=== PATIENT | male | born 1945 | race Caucasian/White ===

== ENCOUNTER 2017-06-26 13:24 | Emergency (ER) | payer OTHER ==
--- NOTE | 2017-06-26 13:36 | ER Report ---
History and Physical Time Seen By MD: 13:33 HPI/ROS CHIEF COMPLAINT: Sent from radiology secondary to obstructive uropathy HISTORY OF PRESENT ILLNESS: Patient is a 9-year-old male who was at the outpatient ultrasound office today for difficulty with urination. Patient had a renal ultrasound that showed bilateral hydronephrosis along with a pre-void residual of 2500 mL of urine followed by a postvoid residual of 1700 MLS. Patient is followed by Dr. Landin; the office was called and they were directed to send the patient to the emergency department for further evaluation. REVIEW OF SYSTEMS: Constitutional: No fever, no chills. Eyes: No discharge. ENT: No sore throat. Cardiovascular: No chest pain, no palpitations. Respiratory: No cough, no shortness of breath. Gastrointestinal: No abdominal pain, no vomiting. Genitourinary: Difficulty with urination Musculoskeletal: No back pain. Skin: No rashes. Neurological: No headache. Allergies: Coded Allergies: No Known Drug Allergies (Unverified , 06/26/17) Home Meds Reported Medications Metoprolol Succinate/Hctz (Metoprolol ER-Hctz 50-12.5 mg) 50 Mg-12.5 Mg Tab.er.24h 06/26/17 Constitutional Vital Sign - Last 24 Hours 06/26/17 13:35 Temp 97.4 Pulse 81 Resp 16 B/P (MAP) 214/115 Pulse Ox 94 O2 Delivery Room Air Intake and Output 06/26/17 06/26/17 06/27/17 15:00 23:00 07:00 Intake Total 0 ml Output Total 100 ml 3600 ml Balance -100 ml -3600 ml Physical Exam General Appearance: The patient is alert, has no immediate need for airway protection and no current signs of toxicity. Eyes: Pupils equal and round no injection. Respiratory: Chest is non tender, lungs are clear to auscultation. Cardiac: regular rate and rhythm Gastrointestinal: Abdomen is soft and non tender, no masses, bowel sounds normal. Musculoskeletal: Neck: Neck is supple and non tender. Extremities have full range of motion and are non tender. Skin: No rashes or lesions. Medical Decision Making Data Points Result Diagram: 06/26/17 1347 06/26/17 1347 Laboratory Hematology Test 06/26/17 13:45 06/26/17 13:47 Urine Color Straw Urine Clarity Clear Urine pH 6.0 pH (4.8-9.5) Urine Specific [place] 1.008 Urine Protein Negative mg/dL (NEGATIVE) Urine Glucose (UA) Negative mg/dL (NEGATIVE) Urine Ketones Negative mg/dL (NEGATIVE) Urine Blood Small (NEGATIVE) Urine Nitrite Negative (NEGATIVE) Urine Bilirubin Negative (NEGATIVE) Urine Urobilinogen Negative mg/dL (0.2-1.9) Urine Leukocyte Esterase Negative (NEGATIVE) Urine RBC 1 /HPF (0-2/HPF) Urine WBC 3 /HPF (0-5/HPF) Urine Squamous Epithelial Cells None /LPF (</=FEW) Urine Bacteria Negative /HPF (NONE-FEW) Urine Mucus None /HPF (NONE-FEW) Red Blood Count 3.54 M/uL (4.00-5.60) Mean Corpuscular Volume 88.0 fL (80.0-96.0) Mean Corpuscular Hemoglobin 30.7 pg (26.0-33.0) Mean Corpuscular Hemoglobin Concent 34.9 g/dL (32.0-36.0) Red Cell Distribution Width 14.5 % (11.5-14.5) Mean Platelet Volume 8.1 fL (7.2-11.1) Neutrophils (%) (Auto) 79.3 % (39.4-72.5) Lymphocytes (%) (Auto) 10.9 % (17.6-49.6) Monocytes (%) (Auto) 7.9 % (4.1-12.4) Eosinophils (%) (Auto) 1.2 % (0.4-6.7) Basophils (%) (Auto) 0.7 % (0.3-1.4) Nucleated RBC Relative Count (auto) 0.0 /100WBC Neutrophils # (Auto) 8.7 K/uL (2.0-7.4) Lymphocytes # (Auto) 1.2 K/uL (1.3-3.6) Monocytes # (Auto) 0.9 K/uL (0.3-1.0) Eosinophils # (Auto) 0.1 K/uL (0.0-0.5) Basophils # (Auto) 0.1 K/uL (0.0-0.1) Nucleated RBC Absolute Count (auto) 0.00 K/uL Sodium Level 134 mmol/L (137-145) Potassium Level 3.9 mmol/L (3.5-5.0) Chloride Level 102 mmol/L (98-107) Carbon Dioxide Level 17 mmol/L (22-30) Blood Urea Nitrogen 49 mg/dl (9-21) Creatinine 3.30 mg/dl (0.66-1.25) Glomerular Filtration Rate Calc 18.6 Random Glucose 101 mg/dl (75-110) Calcium Level 9.2 mg/dl (8.4-10.2) Chemistry Test 06/26/17 13:45 06/26/17 13:47 Urine Color Straw Urine Clarity Clear Urine pH 6.0 pH (4.8-9.5) Urine Specific [place] 1.008 Urine Protein Negative mg/dL (NEGATIVE) Urine Glucose (UA) Negative mg/dL (NEGATIVE) Urine Ketones Negative mg/dL (NEGATIVE) Urine Blood Small (NEGATIVE) Urine Nitrite Negative (NEGATIVE) Urine Bilirubin Negative (NEGATIVE) Urine Urobilinogen Negative mg/dL (0.2-1.9) Urine Leukocyte Esterase Negative (NEGATIVE) Urine RBC 1 /HPF (0-2/HPF) Urine WBC 3 /HPF (0-5/HPF) Urine Squamous Epithelial Cells None /LPF (</=FEW) Urine Bacteria Negative /HPF (NONE-FEW) Urine Mucus None /HPF (NONE-FEW) White Blood Count 10.9 k/uL (4.5-11.0) Red Blood Count 3.54 M/uL (4.00-5.60) Hemoglobin 10.9 g/dL (14.0-18.0) Hematocrit 31.1 % (42.0-52.0) Mean Corpuscular Volume 88.0 fL (80.0-96.0) Mean Corpuscular Hemoglobin 30.7 pg (26.0-33.0) Mean Corpuscular Hemoglobin Concent 34.9 g/dL (32.0-36.0) Red Cell Distribution Width 14.5 % (11.5-14.5) Platelet Count 269 K/uL (150-450) Mean Platelet Volume 8.1 fL (7.2-11.1) Neutrophils (%) (Auto) 79.3 % (39.4-72.5) Lymphocytes (%) (Auto) 10.9 % (17.6-49.6) Monocytes (%) (Auto) 7.9 % (4.1-12.4) Eosinophils (%) (Auto) 1.2 % (0.4-6.7) Basophils (%) (Auto) 0.7 % (0.3-1.4) Nucleated RBC Relative Count (auto) 0.0 /100WBC Neutrophils # (Auto) 8.7 K/uL (2.0-7.4) Lymphocytes # (Auto) 1.2 K/uL (1.3-3.6) Monocytes # (Auto) 0.9 K/uL (0.3-1.0) Eosinophils # (Auto) 0.1 K/uL (0.0-0.5) Basophils # (Auto) 0.1 K/uL (0.0-0.1) Nucleated RBC Absolute Count (auto) 0.00 K/uL Glomerular Filtration Rate Calc 18.6 Calcium Level 9.2 mg/dl (8.4-10.2) Urinalysis Test 06/26/17 13:45 Urine Color Straw Urine Clarity Clear Urine pH 6.0 pH (4.8-9.5) Urine Specific [place] 1.008 Urine Protein Negative mg/dL (NEGATIVE) Urine Glucose (UA) Negative mg/dL (NEGATIVE) Urine Ketones Negative mg/dL (NEGATIVE) Urine Blood Small (NEGATIVE) Urine Nitrite Negative (NEGATIVE) Urine Bilirubin Negative (NEGATIVE) Urine Urobilinogen Negative mg/dL (0.2-1.9) Urine Leukocyte Esterase Negative (NEGATIVE) Urine RBC 1 /HPF (0-2/HPF) Urine WBC 3 /HPF (0-5/HPF) Urine Squamous Epithelial Cells None /LPF (</=FEW) Urine Bacteria Negative /HPF (NONE-FEW) Urine Mucus None /HPF (NONE-FEW) ED Course/Re-evaluation Clinical Indication for ER IV: IV Access ED Course 06/26/2017 1:35:37 pm plan at this time will be to place a Steel catheter will send urine for urinalysis and culture. We will also place IV to draw blood for CBC and electrolytes. Re-evaluation 06/26/2017 3:03:17 pm I spoke with Dr. Monzon who is covering for doctor Landin; they will follow-up the patient within the next 24-48 hours. They understand creatinine is 3.3 but we feel that this is likely secondary to postobstructive uropathy as the patient has had 3600 mL of urine out in the emergency department. Patient's renal ultrasound showed good bilateral ureteral jets feel renal insufficiency is postobstructive. They will follow the patient up for repeat blood testing. In the next 24-48 hours we will discharge the patient with a leg bag Decision to Disposition Date: Jun 26, 2017 Decision to Disposition Time: 14:58 Depart Departure Latest Vital Signs Vital Signs Date Time Temp Pulse Resp B/P (MAP) Pulse Ox O2 Delivery O2 Flow Rate FiO2 06/26/17 13:35 97.4 81 16 214/115 94 Room Air Impression: Primary Impression: Obstructive uropathy Condition: Improved Disposition: HOME OR SELF-CARE Referrals: ALEJA LANDIN DO (PCP) 1 Day Call the office tomorrow morning to schedule follow-up appointment for repeat lab testing. Departure Forms: ER Transition Record, Medications Reconciliation, Patient Portal Information Patient Instructions: Steel Catheter Placement and Care (DC) CELESTE HILL MD Jun 26, 2017 13:35
[2017-06-26] MEDS ORDERED: METO1TAB39 (13:42)
[2017-06-26 14:15] LABS: PLATELET COUNT, AUTOMATED 269 K/uL (150-450)
[2017-06-26 15:19] VITALS: BP 200/107
== END 2017-06-26 15:35 | disposition home or self-care (01) ==
LOC: ER 13:25
DX: N13.30 Unspecified hydronephrosis (principal)
CPT/HCPCS: 81001; 82310; 82374; 82435; 82565; 82947; 84132; 84295; 84520; 85025; 87088; 99284

== ENCOUNTER 2017-06-26 18:34 | Emergency (ER) | payer OTHER ==
--- NOTE | 2017-06-26 18:40 | ER Report ---
History and Physical Time Seen By MD: 18:39 HPI/ROS CHIEF COMPLAINT: Hematuria HISTORY OF PRESENT ILLNESS: 72-year-old male presents to the ER with concerns over blood-tinged urine in his Steel catheter. Patient had a Steel catheter placed earlier this morning here in the emergency department. He was noted to have a high postvoid residual. This evening he notes that there is some blood in the urine. Patient notes no shortness of breath, no chest pain, no abdominal pain, no dysuria, no fevers. Patient notes he did pull on the catheter and sustained some discomfort Allergies: Coded Allergies: No Known Drug Allergies (Unverified , 06/26/17) Home Meds Reported Medications Metoprolol Succinate/Hctz (Metoprolol ER-Hctz 50-12.5 mg) 50 Mg-12.5 Mg Tab.er.24h 06/26/17 Reviewed Nurses Notes: Yes Old Medical Records Reviewed: Yes Constitutional Vital Sign - Last 24 Hours 06/26/17 06/26/17 18:43 19:05 Temp 97.9 Pulse 76 Resp 16 B/P (MAP) 132/84 (100) Pulse Ox 95 O2 Delivery Room Air Physical Exam General appearance: Alert no distress. Respiratory: Chest is non tender, lungs are clear to auscultation. Cardiac: Regular rate and rhythm Abdomen: Soft, nontender, bowel sounds are intact, fully catheter noted. Intact with blood-tinged drainage. DIFFERENTIAL DIAGNOSIS: After history and physical exam differential diagnosis was considered for hematuria, catheter irritation, urinary tract infection, Medical Decision Making ED Course/Re-evaluation ED Course Patient was admitted to an examination room. H&P was done. The differential diagnoses was considered. Patient with hematuria after catheter injury. Patient advised to monitor for any clots. Patient advised to increase his fluid intake. Decision to Disposition Date: Jun 26, 2017 Decision to Disposition Time: 19:11 Depart Departure Latest Vital Signs Vital Signs Date Time Temp Pulse Resp B/P (MAP) Pulse Ox O2 Delivery O2 Flow Rate FiO2 06/26/17 19:05 132/84 (100) 06/26/17 18:43 97.9 76 16 95 Room Air Impression: Primary Impression: Obstructive uropathy Additional Impression: Hematuria Condition: Improved Disposition: HOME OR SELF-CARE Referrals: ALEJA MARIN DO (PCP) JANNA YOUNG MD Patient Instructions: Steel Catheter Placement and Care (ED) Additional Instructions: Follow-up with Dr. Marin on Thursday. He will likely refer you to urology, Dr. Young or Dr. Rai Return to the ER for any further problems Problem Qualifiers Additional Impression: Hematuria Hematuria type: unspecified type Qualified Codes: R31.9 - Hematuria, unspecified LANEY PAGE DO Jun 26, 2017 18:39
[2017-06-26 19:05] VITALS: BP 132/84
== END 2017-06-26 19:26 | disposition home or self-care (01) ==
LOC: ER 18:46
DX: N13.9 Obstructive and reflux uropathy, unspecified (principal); R31.9 Hematuria, unspecified
CPT/HCPCS: 99282

== ENCOUNTER → 2017-06-26 | Outpatient (CLI) | payer OTHER ==
[~2017-06-26] MED LIST: METO1TAB39
--- NOTE | 2017-06-26 14:02 | RADIOLOGY IMAGING REPORT ---
FACILITY: [facility] - [place] PATIENT NAME: Marshal Schmitt : 1945 MR: [id number] V: [id number] EXAM DATE: ORDERING PHYSICIAN: ALEAJ LANDIN TECHNOLOGIST: [facility] Patient: Marshal Schmitt : 1945 Visit/Account:[id number] Date of Sevice: 06/26/2017 KIDNEYS EXAMINATION: Renal ultrasound. History: Acute renal failure COMPARISON STUDIES: FINDINGS: Kidneys: Right kidney- 15 x 12.9 x 10.5 cm Left kidney- 15.3 x 9.6 x 14.4 cm Hydronephrosis: Severe bilateral hydronephrosis Ureters appear mildly dilated. Bladder: The urinary prevoid volume was 2417 mL. The post void residual was 1781 mL. Bilateral uret eral jets are present. Prostate gland appears mildly enlarged. Abdominal aorta and IVC: Aorta and IVC are patent by Doppler ultrasound. IMPRESSION: Marked bladder distention measuring 2,470 mL prevoid and 1,781 mL post void Severe bilateral hydronephrosis The patient was taken to the emergency room for evaluation. Report Dictated By: Siri Julian MD at 06/26/2017 1:52 PM Report E-Signed By: Siri Julian MD at 06/26/2017 1:58 PM [email or web address]
== END ==
LOC: US 01:16
PROVIDERS: ATTEND Family Medicine
DX: N13.30 Unspecified hydronephrosis (principal); N40.1 Benign prostatic hyperplasia with lower urinary tract symptoms; R33.8 Other retention of urine
CPT/HCPCS: 76705

== ENCOUNTER 2017-07-01 18:29 | Emergency (ER) | payer OTHER ==
[2017-07-01] MEDS ORDERED: METO50TA19 PO (18:45)
[2017-07-01] MEDS ORDERED: NS(*) 0.9% 1000 ML BAG 1,000 ML IV ONE ×2 (19:30→21:10)
[2017-07-01 20:12] LABS: PLATELET COUNT, AUTOMATED 305 K/uL (150-450)
--- NOTE | 2017-07-01 20:15 | EKG ---
[place] [facility] [place] NAME: CYNTHIA MALONE : [id number] MR: [id number] V: [id number] EXAM DATE: ORDERING PHYSICIAN: AMANDA FOX TECHNOLOGIST: MARY Test Reason : NEURO Blood Pressure : / mmHG Vent. Rate : 063 BPM Atrial Rate : 063 BPM P-R Int : 184 ms QRS Dur : 084 ms QT Int : 458 ms P-R-T Axes : 055 020 064 degrees QTc Int : 468 ms Sinus rhythm Possible left atrial enlargement Unusual R wave progression - question lead reversal V2 and V3 No previous ECGs available Confirmed by GUIDO GOMEZ ([id number] on 07/02/2017 5:42:43 AM Referred By: Confirmed By:GUIDO GOMEZ
[2017-07-01] MEDS ORDERED: ONDANSETRON 4 MG/2 ML VIAL IVP ONE (20:50)
[2017-07-01] MEDS ORDERED: CALCIUM GLUC(*)10% 100MG/ML VL 1,000 MG in NS(*) 0.9% 100 ML BAG 100 ML IVPB ONE (21:10)
[2017-07-01] MEDS ORDERED: cefTRIAXone 1 GM VIAL IVP ONE (21:40)
[2017-07-01] MEDS ORDERED: GENTAMICIN/NS 80 MG/100 ML PB 100 ML IVPB ONE (21:40)
[2017-07-01] MEDS ORDERED: NS 0.9% 3000 ML IRRIGATION BAG 3,000 ML IR ONE (22:19)
[2017-07-01 22:21] LABS: INR 1.07
--- NOTE | 2017-07-01 23:02 | RADIOLOGY IMAGING REPORT ---
FACILITY: [facility] - [place] PATIENT NAME: Marshal Schmitt : 1945 MR: [id number] V: [id number] EXAM DATE: ORDERING PHYSICIAN: AMANDA FOX TECHNOLOGIST: Location: [facility] - [place] Patient: Marshal Schmitt : 1945 Visit/Account:[id number] Date of Sevice: 07/01/2017 SINGLE AP RADIOGRAPH OF THE CHEST 07/01/2017 9:37 PM. INDICATION: sepsis COMPARISON: None. FINDINGS: Lungs are well-expanded. There is no consolidation. No pleural effusion or pneumothorax. Heart size i s normal. IMPRESSION: No acute abnormality. Report Dictated By: Kuldeep Lam MD at 07/01/2017 10:54 PM Report E-Signed By: Kuldeep Lam MD at 07/01/2017 10:58 PM WSN:[id number]
[2017-07-02 01:10] VITALS: BP 137/75
[2017-07-02 01:12] LABS: PLATELET COUNT, AUTOMATED 243 K/uL (150-450)
--- NOTE | 2017-07-02 01:24 | ER Report ---
History and Physical Time Seen By MD: 18:45 Hx. of Stated Complaint: pt presents with a hx urinary/bladder issues. Was seen by urologist and cathed on thursday, a few times. Occasionally, pt urinates on his own, but just small amts. Today, he cathed and had no problem. About 3 hours later started feeling "faint". Started metoprolol 2 weeks ago HPI/ROS 72-year-old male with a history of renal insufficiency, hypertension, and enlarged prostate. Presented to the emergency department 4 days ago with urinary retention. After placing a Steel catheter the patient voided 3600 mL of urine. The patient then followed up with Dr. Young of urology yesterday. Per conversations with Dr. Young as well as with the patient, it was difficult to pass multiple catheters past the patient's prostate. He developed gross hematuria after the procedure yesterday. Steel catheter was not left in place and instead the patient was to self catheter 4 times a day. Earlier this afternoon the patient had an episode of presyncope diaphoresis and nausea. No chest pain. He had another episode around 6 PM which wanted him to come to the emergency department. He continues with close hematuria. He was able to spontaneously made small amounts. He voids gross blood. No fever/chills. No abdominal pain other than feeling fullness in his bladder. Was also recently started on metoprolol 50mg qam. He does not take any other meds Remainder of the 14 system rev: Yes Allergies: Coded Allergies: No Known Drug Allergies (Unverified , 07/01/17) Home Meds Reported Medications Metoprolol Succinate (METOPROLOL SUCCINATE) 50 Mg Tab.er.24h, 1 TAB PO QDAY, TAB 07/01/17 Discontinued Reported Medications Metoprolol Succinate/Hctz (Metoprolol ER-Hctz 50-12.5 mg) 50 Mg-12.5 Mg Tab.er.24h 06/26/17 Reviewed Nurses Notes: Yes Old Medical Records Reviewed: Yes Hx Smoking: No Smoking Status: Never Smoker Hx Substance Use Disorder: No Hx Alcohol Use: No Family History of: HTN Constitutional Vital Sign - Last 24 Hours 07/01/17 07/01/17 07/01/17 07/01/17 18:35 18:35 18:44 18:59 Temp 97.5 Pulse 66 76 75 Resp 20 16 25 B/P (MAP) 126/72 126/72 (90) Pulse Ox 95 96 96 O2 Delivery Room Air 07/01/17 07/01/17 07/01/17 07/01/17 19:00 19:14 19:30 19:51 Pulse 82 Resp 13 B/P (MAP) 118/69 (85) 112/76 (88) 69/39 (49) Pulse Ox 97 07/01/17 07/01/17 07/01/17 07/01/17 19:56 20:00 20:10 20:11 Pulse 64 Resp 38 19 B/P (MAP) 98/62 (74) 103/67 (79) 112/62 (79) Pulse Ox 98 07/01/17 07/01/17 07/01/17 07/01/17 20:20 20:25 20:30 20:40 Pulse 58 62 B/P (MAP) 118/63 (81) 116/62 (80) 114/61 (78) Pulse Ox 96 100 07/01/17 07/01/17 07/01/17 07/01/17 20:50 20:55 20:57 21:00 Pulse 57 B/P (MAP) 97/57 (70) 152/81 (104) 135/72 (93) 07/01/17 07/01/17 07/01/17 07/01/17 21:10 21:20 21:25 21:30 Pulse 60 52 Resp 19 12 B/P (MAP) 114/64 (81) 109/63 (78) 112/58 (76) Pulse Ox 96 98 07/01/17 07/01/17 07/01/17 07/01/17 21:34 21:40 21:50 21:55 Pulse 52 59 Resp 12 16 B/P (MAP) 120/63 (82) 113/60 (77) Pulse Ox 100 100 O2 Flow Rate 2.0 07/01/17 07/01/17 07/01/17 07/01/17 22:00 22:10 22:20 22:20 Pulse 62 61 Resp 18 10 B/P (MAP) 126/73 (90) 125/65 (85) 127/63 (84) 127/63 (84) Pulse Ox 100 100 07/01/17 07/01/17 07/01/17 07/01/17 22:30 22:35 22:40 22:50 Pulse 60 62 B/P (MAP) 113/61 (78) 122/71 (88) 128/69 (88) Pulse Ox 100 100 07/01/17 07/01/17 07/01/17 07/01/17 23:00 23:05 23:10 23:20 Pulse 66 74 B/P (MAP) 132/76 (94) 126/73 (90) 142/78 (99) Pulse Ox 100 100 07/01/17 23:30 B/P (MAP) 136/81 (99) Physical Exam General Appearance: The patient is alert, has no immediate need for airway protection and no signs of toxicity. Eyes: Pupils equal and round no pallor or injection. ENT, Mouth: Mucous membranes are moist. Respiratory: There are no retractions, lungs are clear to auscultation. Cardiovascular: Regular rate and rhythm. Gastrointestinal: Abdomen is soft and non tender, no masses, bowel sounds normal. Skin: Warm and dry, no rashes. : gross blood at meatus after voiding Extremities are nontender, nonswollen and have full range of motion. DIFFERENTIAL DIAGNOSIS: After history and physical exam differential diagnosis was considered for syncope secondary to hypovolemia from bleeding, vasovagal syncope secondary to bladder distention, sepsis, ACS Medical Decision Making Data Points Result Diagram: 07/01/17 1835 07/01/171957 Laboratory Hematology Test 07/01/17 00:00 07/01/17 19:55 07/01/17 19:58 07/01/17 22:35 Urine Color Blue Urine Clarity Turbid Urine pH 7.0 pH (4.8-9.5) Urine Specific [place] 1.034 Urine Protein 100 mg/dL (NEGATIVE) Urine Glucose (UA) 150 mg/dL (NEGATIVE) Urine Ketones 20 mg/dL (NEGATIVE) Urine Blood Large (NEGATIVE) Urine Nitrite Negative (NEGATIVE) Urine Bilirubin Negative (NEGATIVE) Urine Urobilinogen Negative mg/dL (0.2-1.9) Urine Leukocyte Esterase Negative (NEGATIVE) Urine RBC 97245 /HPF (0-2/HPF) Urine WBC 621 /HPF (0-5/HPF) Urine WBC Clumps Many /HPF Urine Squamous Epithelial Cells None /LPF (</=FEW) Urine Bacteria Negative /HPF (NONE-FEW) Urine Mucus None /HPF (NONE-FEW) Prothrombin Time 14.0 seconds (12.0-14.4) Prothromb Time International Ratio 1.07 Activated Partial Thromboplast Time 25 seconds (23-35) Sodium Level 127 mmol/L (137-145) Potassium Level 3.6 mmol/L (3.5-5.0) Chloride Level 93 mmol/L (98-107) Carbon Dioxide Level 18 mmol/L (22-30) Blood Urea Nitrogen 45 mg/dl (9-21) Creatinine 2.60 mg/dl (0.66-1.25) Glomerular Filtration Rate Calc 24.5 Random Glucose 229 mg/dl (75-110) Calcium Level 8.6 mg/dl (8.4-10.2) Total Bilirubin 0.4 mg/dl (0.2-1.3) Aspartate Amino Transf (AST/SGOT) 22 U/L (0-35) Alanine Aminotransferase (ALT/SGPT) 31 U/L (0-56) Alkaline Phosphatase 70 U/L (0-126) Total Protein 6.2 gm/dl (6.3-8.2) Albumin 3.5 g/dl (3.5-5.0) Lactate 1.5 mmol/L (0.7-2.1) Troponin I 0.143 ng/ml Test 07/01/17 23:55 Red Blood Count 2.63 M/uL (4.00-5.60) Mean Corpuscular Volume 88.5 fL (80.0-96.0) Mean Corpuscular Hemoglobin 30.3 pg (26.0-33.0) Mean Corpuscular Hemoglobin Concent 34.3 g/dL (32.0-36.0) Red Cell Distribution Width 14.3 % (11.5-14.5) Mean Platelet Volume 7.8 fL (7.2-11.1) Neutrophils (%) (Auto) 92.9 % (39.4-72.5) Lymphocytes (%) (Auto) 3.2 % (17.6-49.6) Monocytes (%) (Auto) 3.0 % (4.1-12.4) Eosinophils (%) (Auto) 0.0 % (0.4-6.7) Basophils (%) (Auto) 0.9 % (0.3-1.4) Nucleated RBC Relative Count (auto) 0.0 /100WBC Neutrophils # (Auto) 14.6 K/uL (2.0-7.4) Lymphocytes # (Auto) 0.5 K/uL (1.3-3.6) Monocytes # (Auto) 0.5 K/uL (0.3-1.0) Eosinophils # (Auto) 0.0 K/uL (0.0-0.5) Basophils # (Auto) 0.1 K/uL (0.0-0.1) Nucleated RBC Absolute Count (auto) 0.00 K/uL Peripheral Blood Smear Yes Y/N Chemistry Test 07/01/17 00:00 07/01/17 19:55 07/01/17 19:58 07/01/17 22:35 Urine Color Blue Urine Clarity Turbid Urine pH 7.0 pH (4.8-9.5) Urine Specific [place] 1.034 Urine Protein 100 mg/dL (NEGATIVE) Urine Glucose (UA) 150 mg/dL (NEGATIVE) Urine Ketones 20 mg/dL (NEGATIVE) Urine Blood Large (NEGATIVE) Urine Nitrite Negative (NEGATIVE) Urine Bilirubin Negative (NEGATIVE) Urine Urobilinogen Negative mg/dL (0.2-1.9) Urine Leukocyte Esterase Negative (NEGATIVE) Urine RBC 96601 /HPF (0-2/HPF) Urine WBC 621 /HPF (0-5/HPF) Urine WBC Clumps Many /HPF Urine Squamous Epithelial Cells None /LPF (</=FEW) Urine Bacteria Negative /HPF (NONE-FEW) Urine Mucus None /HPF (NONE-FEW) Prothrombin Time 14.0 seconds (12.0-14.4) Prothromb Time International Ratio 1.07 Activated Partial Thromboplast Time 25 seconds (23-35) Glomerular Filtration Rate Calc 24.5 Calcium Level 8.6 mg/dl (8.4-10.2) Total Bilirubin 0.4 mg/dl (0.2-1.3) Aspartate Amino Transf (AST/SGOT) 22 U/L (0-35) Alanine Aminotransferase (ALT/SGPT) 31 U/L (0-56) Alkaline Phosphatase 70 U/L (0-126) Total Protein 6.2 gm/dl (6.3-8.2) Albumin 3.5 g/dl (3.5-5.0) Lactate 1.5 mmol/L (0.7-2.1) Troponin I 0.143 ng/ml Test 07/01/17 23:55 White Blood Count 15.8 k/uL (4.5-11.0) Red Blood Count 2.63 M/uL (4.00-5.60) Hemoglobin 8.0 g/dL (14.0-18.0) Hematocrit 23.3 % (42.0-52.0) Mean Corpuscular Volume 88.5 fL (80.0-96.0) Mean Corpuscular Hemoglobin 30.3 pg (26.0-33.0) Mean Corpuscular Hemoglobin Concent 34.3 g/dL (32.0-36.0) Red Cell Distribution Width 14.3 % (11.5-14.5) Platelet Count 243 K/uL (150-450) Mean Platelet Volume 7.8 fL (7.2-11.1) Neutrophils (%) (Auto) 92.9 % (39.4-72.5) Lymphocytes (%) (Auto) 3.2 % (17.6-49.6) Monocytes (%) (Auto) 3.0 % (4.1-12.4) Eosinophils (%) (Auto) 0.0 % (0.4-6.7) Basophils (%) (Auto) 0.9 % (0.3-1.4) Nucleated RBC Relative Count (auto) 0.0 /100WBC Neutrophils # (Auto) 14.6 K/uL (2.0-7.4) Lymphocytes # (Auto) 0.5 K/uL (1.3-3.6) Monocytes # (Auto) 0.5 K/uL (0.3-1.0) Eosinophils # (Auto) 0.0 K/uL (0.0-0.5) Basophils # (Auto) 0.1 K/uL (0.0-0.1) Nucleated RBC Absolute Count (auto) 0.00 K/uL Peripheral Blood Smear Yes Y/N Coagulation Test 07/01/17 19:55 Prothrombin Time 14.0 seconds Prothromb Time International Ratio 1.07 Activated Partial Thromboplast Time 25 seconds Urinalysis Test 07/01/17 00:00 Urine Color Blue Urine Clarity Turbid Urine pH 7.0 pH (4.8-9.5) Urine Specific [place] 1.034 Urine Protein 100 mg/dL (NEGATIVE) Urine Glucose (UA) 150 mg/dL (NEGATIVE) Urine Ketones 20 mg/dL (NEGATIVE) Urine Blood Large (NEGATIVE) Urine Nitrite Negative (NEGATIVE) Urine Bilirubin Negative (NEGATIVE) Urine Urobilinogen Negative mg/dL (0.2-1.9) Urine Leukocyte Esterase Negative (NEGATIVE) Urine RBC 56595 /HPF (0-2/HPF) Urine WBC 621 /HPF (0-5/HPF) Urine WBC Clumps Many /HPF Urine Squamous Epithelial Cells None /LPF (</=FEW) Urine Bacteria Negative /HPF (NONE-FEW) Urine Mucus None /HPF (NONE-FEW) EKG/Imaging Monitor Interpretation: Normal Sinus Rhythm Imaging X-ray: CXR was obtained. I viewed the images myself on the PACS system. My interpretation of the images is: no infiltrates/consolidations. The radiologist interpretation had no clinically significant variation from this interpretation. ED Course/Re-evaluation Clinical Indication for ER IV: Hypotention ED Course This is a 72-year-old male with known renal insufficiency, hypertension, and enlarged prostate. He had urinary manipulation yesterday by Dr. Young which resulted in gross hematuria. He gross hematuria was to be expected. The patient presented to the emergency department after 2 episodes of presyncope at home. He does not have an indwelling Steel catheter at this time, and was supposed to be self cathetering at home instead. The patient reports being able to spontaneously void twice today, and describes it as gross hematuria. Still feels fullness in his bladder however. No fever or chills, no chest pain, no shortness of breath. The patient had multiple episodes of syncope while in the emergency department this evening. He became diaphoretic and hypotensive with nausea and vomiting during the episodes. He was resuscitated with 2 L of IV fluids, given calcium gluconate to reverse the beta chema, and also given 2 units of packed red blood cells due to his continued bleeding and hypotension. I spoke with both Dr. Rai and Dr. Young about this patient. The plan was to insert a 3-way Steel catheter and start continuous bladder irrigation. The large Steel catheter could not be passed due to the patient's enlarged prostate. We were going to go ahead and place a non-irrigating daily catheter, however the patient was able to load a large amount of urine. We elected not to put the daily and given the fact that it would likely clot given its small size. Patient's multiple episodes of syncope serial troponins were ordered and the 2nd troponin was 0.143. Again the patient never had any chest pain. His H&H did drop to 8 and 23. I think his elevated troponin is from demand ischemia. Again he was given 2 units of packed red blood cells. He was not given aspirin due to his continued bleeding. Due to his elevated troponin the patient was transferred to [place] for both cardiology and urology consults. Upon transfer the patient actually said that he felt improved. After fluid resuscitation and administration of blood products, the patient did not have any additional episodes of syncope. Decision to Disposition Date: Jul 02, 2017 Decision to Disposition Time: 01:40 Critical Care Time I spent a total of 60 minutes of critical care time in obtaining history, performing a physical exam, bedside monitoring of interventions, collecting and interpreting tests and discussion with consultants but not including time spent performing procedures. Transfer Facility Patient was transferred to [facility] Depart Departure Latest Vital Signs Vital Signs Date Time Temp Pulse Resp B/P (MAP) Pulse Ox O2 Delivery O2 Flow Rate FiO2 07/01/17 23:30 136/81 (99) 07/01/17 23:20 74 100 07/01/17 22:20 10 07/01/17 21:34 2.0 07/01/17 18:35 97.5 Room Air Impression: Primary Impression: Hematuria Additional Impression: NSTEMI (non-ST elevated myocardial infarction) Condition: Improved Disposition: XFER TO ACUTE CARE HOSPITAL Referrals: ALEJA LANDIN DO (PCP) Problem Qualifiers Primary Impression: Hematuria Hematuria type: gross Qualified Codes: R31.0 - Gross hematuria AMANDA FOX MD Jul 02, 2017 01:24
--- NOTE | 2017-07-02 07:20 | EKG ---
FACILITY: [facility] PATIENT NAME: CYNTHIA MALONE : [id number] MR: [id number] V: [id number] EXAM DATE: ORDERING PHYSICIAN: AMANDA FOX TECHNOLOGIST: MARY Mesa Reason : REPEAT EKG Blood Pressure : / mmHG Vent. Rate : 078 BPM Atrial Rate : 078 BPM P-R Int : 180 ms QRS Dur : 062 ms QT Int : 428 ms P-R-T Axes : 066 039 043 degrees QTc Int : 487 ms Normal sinus rhythm Septal infarct , age undetermined Abnormal ECG When compared with ECG of 01-JUL-2017 19:57, Septal infarct is now present ST now depressed in Inferior leads Confirmed by VENTURA OLIVAREZ ([id number]) on 07/02/2017 4:39:57 PM Referred By: Confirmed By:VENTURA OLIVAREZ
== END 2017-07-02 01:32 | disposition short-term general hospital (02) ==
LOC: ER 18:52
DX: I21.4 Non-ST elevation (NSTEMI) myocardial infarction (principal); R31.9 Hematuria, unspecified
CPT/HCPCS: 71045; 81001; 83605; 84484; 85025; 85610; 85730; 86850; 86900; 86901; 86920; 87040; 93005; 99291; J0610; J0696; J1580; J2405; J7030; J7050; P9016; 36430; 82040; 82247; 82310; 82374; 82435; 82565; 82947; 84075; 84132; 84155; 84295; 84450; 84460; 84520; 99285; A4340

== ENCOUNTER → 2017-07-02 | Outpatient (REF) ==
[~2017-07-02] MED LIST changes: +METO50TA19 PO
== END ==
LOC: AMB 00:30
PROVIDERS: ATTEND Nurse Practitioner
DX: Z02.9 Encounter for administrative examinations, unspecified (principal)

== ENCOUNTER → 2017-11-25 | Outpatient (CLI) | payer OTHER ==
[2017-11-25 10:21] LABS: PLATELET COUNT, AUTOMATED 261 K/uL (150-450)
== END ==
LOC: LAB 10:05
PROVIDERS: ATTEND Internal Medicine Nephrology
DX: Z13.9 Encounter for screening, unspecified (principal); I10 Essential (primary) hypertension; N17.9 Acute kidney failure, unspecified; C61 Malignant neoplasm of prostate
CPT/HCPCS: 36415; 82040; 82310; 82374; 82435; 82565; 82570; 82947; 84100; 84132; 84156; 84295; 84520; 85025

== ENCOUNTER → 2018-01-07 | Outpatient (CLI) | payer OTHER | LOC: LAB 08:54 | PROVIDERS: ATTEND Internal Medicine Nephrology | DX: Z13.9 Encounter for screening, unspecified (principal); N17.9 Acute kidney failure, unspecified; I10 Essential (primary) hypertension; C61 Malignant neoplasm of prostate | CPT/HCPCS: 36415; 82040; 82310; 82374; 82435; 82565; 82570; 82947; 84100; 84132; 84156; 84295; 84520; 85027 ==

== ENCOUNTER → 2018-02-22 | Outpatient (CLI) | payer OTHER | LOC: LAB 11:14 | PROVIDERS: ATTEND Internal Medicine Nephrology | DX: N18.3 Chronic kidney disease, stage 3 (moderate) (principal); I10 Essential (primary) hypertension | CPT/HCPCS: 36415; 82310; 82374; 82435; 82565; 82947; 84132; 84295; 84520 ==

== ENCOUNTER 2018-04-19 14:45 | Outpatient (RCR) | payer OTHER ==
[~2018-04-19 14:45] MED LIST changes: +ACET-1966 PO; +AMLO-127 PO; +ASPI-757 PO
[2018-04-19] MEDS ORDERED: LEUPROLIDE IM ONLY ONE (15:15)
[2018-04-19 15:41] VITALS: BP 175/100
== END 2018-07-15 ==
LOC: SPU 14:45
PROVIDERS: ATTEND Radiology Radiation Oncology
DX: C61 Malignant neoplasm of prostate (principal)
CPT/HCPCS: 96372; J9217

== ENCOUNTER → 2018-05-12 | Outpatient (CLI) | payer OTHER ==
[2018-05-12 11:20] LABS: PLATELET COUNT, AUTOMATED 193 K/uL (150-450)
== END ==
LOC: LAB 10:58
PROVIDERS: ATTEND Internal Medicine Nephrology
DX: I12.9 Hypertensive chronic kidney disease with stage 1 through stage 4 chronic kidney disease, or unspecified chronic kidney disease (principal); N18.3 Chronic kidney disease, stage 3 (moderate); D64.9 Anemia, unspecified
CPT/HCPCS: 36415; 82040; 82310; 82374; 82435; 82565; 82570; 82947; 84100; 84132; 84156; 84295; 84520; 85025

== ENCOUNTER → 2018-05-24 | Outpatient (CLI) | payer OTHER | LOC: LAB 10:50 | PROVIDERS: ATTEND Internal Medicine Nephrology | DX: E87.1 Hypo-osmolality and hyponatremia (principal); R80.9 Proteinuria, unspecified | CPT/HCPCS: 36415; 82310; 82374; 82435; 82565; 82947; 83735; 83883; 84132; 84156; 84165; 84295; 84443; 84520; 86335 ==

== ENCOUNTER 2018-06-07 10:30 | Outpatient (RCR) | payer OTHER ==
[2018-03-16 16:10] LABS: PLATELET COUNT, AUTOMATED 229 K/uL (150-450)
--- NOTE | 2018-03-17 00:11 | TOBIN CONSULT ---
EVENT DATE: March 16, 2018 DIAGNOSIS Durham 3 + 4 = 7/10 adenocarcinoma of the prostate, status post radical prostatectomy on 09/23/17. Presurgery PSA of 19. A 7 mm dominant nodule was appreciated at time of surgery with 4% high-grade pattern. Surgical margins negative. Two lymph nodes submitted and both negative for malignancy. Patient is listed as a pathologic [id number] with detectable/slowly rising PSA post surgery. HISTORY This is a pleasant, 73-year-old gentleman who is referred to me by Dr. Wahl in [place]. Patient was accompanied by his , and excellent records were reviewed from the [place] office prior to the actual visit today. Additional history was gained from the patient and his spouse. Patient has a strong family history of prostate carcinoma in three brothers (ages 71 to 73). He presented to his providers with progressive urinary urgency, frequency, and poor stream over time frame of approximately 12 months. PSA was being monitored twice a year through [facility], and Dr. Marin was closely monitoring his numbers as well during that time frame. The PSA started off at 3.7 ng/mL in September 2013, but then [place] to the 5.3 to 5.9 range on the next two-year values. Patient presented to a local urology office with significant outlet obstruction and rising creatinine. He underwent placement of a Steel catheter in June, but unfortunately, significant bleeding was started at that time. The patient needed to be transferred by [facility] to [place]. During the [place] hospitalization, he was stabilized, and Dr. Wahl was consulted. According to the , over a six-day time frame, he received six units of blood. Finally on the last day, Dr. Wahl was able to irrigate the clots successfully from the bladder, and subsequently all bleeding was stopped. Patient states he did have a CT scan of the abdomen and pelvis in [place]. Those images were requested today. He was noted to have a significantly enlarged prostate gland with obstruction uropathy resulting in moderately severe renal insufficiency. believes the peak creatinine was around 2.3. Creatinine has now returned to 1.5 on my most recent laboratory studies. During a followup appointment with Dr. Wahl, the patient had additional laboratory studies and was found to have a high PSA of 19 ng/mL. He was advised to undergo a transrectal ultrasound and biopsy of the prostate. That procedure was initially performed on 07/27/17. The pathology was notable Nancy 3 + 4 = 7, moderately to poorly differentiated adenocarcinoma from the left lobe of the prostate towards the apex. The tumor occupied 14% of the volume of the core biopsy. Approximately 40% of the biopsy was poorly differentiated. Remainder of the biopsy specimens were negative, although atypical glands were found in left lateral mid gland biopsy specimen. Due to the patient's obstructive uropathy, which was severe and recent urinary outlet obstruction, the patient was advised to undergo a radical prostatectomy, which I feel is entirely appropriate. That procedure was performed by Dr. Wahl on 09/21/17 in [place]. Final histopathology reveals prostate size to be 4.5 x 4.5 x 4.2 cm (70 g), Nancy 3 + 4 tumor was confirmed in the prostate. The exact location was not listed on the path report; however, believe that was in the left lobe, a grade pattern 4, 10%, dominant nodule 7 mm. No extraprostatic extension was identified, and seminal vesicle not identified. Two lymph nodes were examined which were negative for carcinoma. Patient has recovered nicely from surgery with full recovery of voiding pattern. In fact, he has nocturia only times one. Generally voids four to five times per day. The patient did undergo postsurgical PSA laboratory studies on 12/03/17 with initial PSA returning 0.055. PSA was repeated two months later on 02/11/18 with value of 0.115. Patient is referred for discussion of possible adjuvant or salvage radiation therapy due to detectable PSA, Durham grade at diagnosis, and intermediate risk tumor. Patient denies any new or persistent bone pain. His hypertension and renal insufficiency is being managed by Dr. Lunsford. PAST MEDICAL HISTORY 1. Renal insufficiency. 2. Hypertension. 3. Prostate carcinoma. 4. Hay fever. SURGICAL HISTORY Radical prostatectomy 09/2017. SOCIAL HISTORY Patient is retired. He lives [place] away from the Cancer [place]. He is accompanied by his , Maria E. He has a son, age 45, and daughter, age 32. He is retired. Previously, he smoked less than one pack per day for seven years, having stopped 40 years ago. COMPREHENSIVE REVIEW OF SYSTEMS Negative for any weight loss. No chest pain or palpitations, respiratory complaints. No recent change in bowel habits. He does have nocturia times one. Generally, he voids four times to five times a day. He denies any leakage. He does have some occasional achiness in his testicle, but nothing on a persistent basis. No hernia by his report. He denies any swelling of the lower extremities. No focal neurologic symptoms. PHYSICAL EXAMINATION GENERAL: Pleasant, 73-year-old male, medium build. VITALS: BP 205/99 (He accounts this to white coat syndrome. Patient states his BP at home is 130/80). Pulse 100. Respirations 16. O2 sat 96% on room air. Weight 167. Height 5 feet 8 inches. LYMPHATICS: No lymphadenopathy. LUNGS: Clear bilaterally. HEART: Sounds regular. No audible murmur. ABDOMEN: Soft. No gross organomegaly. RECTAL: Deferred due to recent surgery and PSA values. I would be unlikely to feel any abnormalities at this juncture. EXTREMITIES: No edema or cyanosis. NEUROLOGIC: Intact. IMPRESSION This is a very challenging case. We essentially have a 73-year-old gentleman who had a progressive rise in his PSA over the last two to three years with a strong family history of prostate carcinoma in three siblings. The patient presented with obstructive uropathy/bladder outlet obstruction and, unfortunately, required a hospitalization for six days back in June. In July of this year, his PSA had jumped from the 6 to 19 range, and with the large gland, the patient was advised to consider ultrasound biopsy. That study was notable for Nancy 7, moderately to poorly differentiated carcinoma in the left lobe periphery. Patient underwent radical prostatectomy in September. The main findings were a dominant nodule at 7 mm. The pathologist lists the lesion as a pT2. Two lymph nodes removed were negative. Margins were listed as negative. No seminal vesicles in the operative specimen, so they were not commented on. Excellent recovery following surgery. Detectable PSA three months following surgery at 0.05, which was confirmed two months later at 0.11. (New psa on date if this consult is now 0.16) RECOMMENDATIONS At this juncture, I went over the pathology reports carefully with the patient and also went over the literature up to date both from an adjuvant standpoint as well as a salvage standpoint. He would be listed as adjuvant at this time as the PSA has not reached 0.2. I do suspect there is significant risk for microscopic tumor residual in this particular gentleman with his clinical history over this past year. Typing and his presenting criteria to the [facility] nom[facility] would have listed the patient as having 60% probability of extracapsular extension and 3% involvement of seminal vesicles. My plan would be as follows at this time. 1. Recheck laboratory studies today including the PSA, CBC, and CMP. 2. Request the initial disk for me to review from [place] from June 2017. 3. Obtain an updated CT scan of the abdomen and pelvis. I will need to do this without contrast since his creatinine is 1.5. Study will give us another look at his bones and also look for any suspicious abnormalities. It could also be used to therapy planning. 4. Review pros and cons of ongoing surveillance versus external beam radiotherapy with the patient and spouse in two weeks. They are agreeable to proceed if I feel this is clinically indicated. We had an excellent discussion of the literature, which consistently demonstrates a 15% to 20% advantage to adding radiation therapy to surgery in patients with either detectable PSAs or rising PSAs post surgery. There was a recent RTOG report from 2018 meeting which also shows additive benefit for four to six months of ADT with the radiation programs. The study involved 1792 patients and showed a relapse-free survival of 83% with combined modality therapy as opposed to 71%. In select patients, the lymph node should also be treated from that trial, but patients need to be individualized was the conclusion in the latter regard. The lymph nodes in this gentleman are negative with adequate sampling. [place] from distant metastasis was 91% to 94%. The trial is confirmatory of older trials that included the RTOG 9601. In 760 patients with PSAs in the 0.2 range or above, the cancer-free mortality is dropped by 50% by early adjuvant radiotherapy as opposed to delayed treatment with the suggestion of overall survival improvement in 12 years. If the radiotherapy does proceed, this will be delivered over a time course of seven to eight weeks. My plan is to make my final recommendations in two weeks. Although I did spend 90 minutes with the patient and his spouse this afternoon, this is a case where I would like to think about it further with review of old and recent imaging to make final recommendations. Initial images from the [facility] at time of obstruction will be reviewed carefully for any further clues as to how this malignancy is acting. For a nancy 7 tumor, I would classify him as intermedate risk. Since each psa is trending upward, we could proceed with focused beam radiation therapy and sterilize and microscopic residual based known literature and this patients pathologic features. The patient and his spouse were grateful for the information that was provided today, and questions tentatively answered to their satisfaction. More to follow in two weeks. Thank you for your expressed confidence in our cancer center and the excellent records which were available for review. SOY
--- NOTE | 2018-03-24 11:03 | RADIOLOGY IMAGING REPORT ---
FACILITY: [facility] PATIENT NAME: Marshal Schmitt : 1945 MR: [id number] V: [id number] EXAM DATE: ORDERING PHYSICIAN: FERNANDA ERICKSON TECHNOLOGIST: Location: [facility] Patient: Marshal Schmitt : 1945 Visit/Account:[id number] Date of Sevice: 03/24/2018 ABDOMEN/PELVIS W/O CONTRAST HISTORY: Stage I prostate cancer, prostatectomy in September TECHNIQUE: Axial images acquired through the abdomen/pelvis. Coronal and sagittal reformatting also performed. No IV contrast administered.Dose Lowering Technique One of the following dose optimization techniques was utilized in the performance of this exam: Autom ated exposure control; adjustment of the mA and/or kV according to the patient's size; or use of an i terative reconstruction technique. Specific details can be referenced in the facility's radiology C T exam operational policy. COMPARISON: Renal ultrasound June 26, 2017 FINDINGS: Visualized lung bases: Negative. Hepatobiliary: The gallbladder contains heterogeneous material which may represent stones or sludge. There is no evidence of biliary ductal dilatation Spleen: Negative. Adrenals: Negative. Pancreas: Negative. Kidneys ureters and bladder: There is moderate bilateral hydronephrosis and a moderate left hydrouret er. The bladder wall is markedly thickened and irregular Genitalia: There are postsurgical changes from a prostatectomy GI: There is diverticulosis of the left-sided colon although no CT evidence of acute diverticulitis Vessels/spaces/nodes: There mild to moderate vascular calcifications throughout the abdomen and pelv is is a right common femoral lymph node measuring 1.6 x 1.1 cm Bones/soft tissues: There are small bilateral inguinal hernias containing fat . No aggressive appea ring bone lesions are seen Additional findings: None pertinent. IMPRESSION: There are postsurgical changes from a prostatectomy. There are there is moderate bilateral hydronephrosis and moderate left hydroureter. The bladder wall is markedly thickened and irregular Gallbladder contains heterogeneous material which may represent stones or sludge Diverticulosis left-sided colon Small bilateral inguinal hernias containing fat Report Dictated By: Siri Julian MD at 03/24/2018 9:59 AM Report E-Signed By: Siri Julian MD at 03/24/2018 10:59 AM WSN:[email or web address]
--- NOTE | 2018-04-07 17:21 | ONCOLOGY FOLLOW UP NOTE ---
EVENT DATE: March 30, 2018 DIAGNOSIS Adenocarcinoma of the prostate, status post radical prostatectomy 09/23/17, [place] 3 + 4 = 7/10, presurgery PSA of 19. A 7 mm dominant nodule, pathologic T2 N0 M0. Patient referred for considerations of postoperative radiotherapy for slowly rising PSA with significant risk for tumor recurrence based on pathologic findings at presentation. INTERVAL HISTORY Patient was seen in consultation on 03/16/18. At that time, I recommended a followup CT scan of the abdomen and pelvis and updated PSA before making up our minds regarding postoperative external beam radiation therapy to the prostate bed. Films were reviewed directly with the patient and his spouse. I was also able to directly go to the [facility] to find the original images prior to the surgical resection when the patient presented with severe obstructive uropathy and bilateral hydronephrosis. The studies were negative for any signs of metastatic disease to lymph nodes or to bone. Postoperative changes were noted at the site of surgical resection with clips identified. There appeared to be some atrophy of the left renal cortex, which I am certain resulted from the initial obstructive uropathy. The patient is being followed closely by Nephrology at this juncture and monitored appropriately. PLAN I reviewed details of radiation therapy delivery and potential acute late side effects (most commonly slight increase in urinary urgency and frequency, occasional bowel urgency which is usually managed with Imodium). The patient and his spouse are fully agreeable to proceed with radiation therapy at this time and recognize the potential benefit in terms of long-term PSA control. Patient is felt to have microscopic residual cells present which most likely are in the operative bed. From the recent RTOG paper presented at [place] this year, the first phase of the radiotherapy course will cover the lower pelvis to 45 Gy in 25 fractions with the subsequent boost to the resection site with appropriate lateral, superior, and inferior margins to 66 to 68 Gy standard fractionation. RapidArc with IMRT approach will be utilized to minimize dose to normal surrounding tissues. Treatment course is typically completed in approximately seven weeks with Thursday through Thursday fractionation. The patient would also benefit from six- to eight-month ADT treatment from the RTOG paper as well. [facility], so I will check with staff and try to get that approved within the next seven days (Eligard or Lupron 30 mg times two). I also advised the patient I could easily contact Dr. Wahl, and he could go direct to their office for the injection. However, they would prefer not to drive to [place] if possible and see if [facility] to him. I think that is a reasonable request, and our patient navigator will assist. Signed consent was obtained for treatment. CT target volume will be outlined within the next seven days, and radiotherapy course will start within two weeks. All questions answered to the patient's and his spouse's satisfaction. SOY
--- NOTE | 2018-04-20 10:25 | NUR ---
Pt completed initial HADS form - D: 3, A: 6, both in normal range. Will complete follow up near the end of his treatment.
[2018-05-18 11:10] LABS: PLATELET COUNT, AUTOMATED 191 K/uL (150-450)
[2018-05-25 11:24] LABS: PLATELET COUNT, AUTOMATED 232 K/uL (150-450)
[2018-06-01 11:39] LABS: PLATELET COUNT, AUTOMATED 237 K/uL (150-450)
[2018-06-01 11:40] VITALS: BP 168/90
[2018-06-08 10:42] LABS: PLATELET COUNT, AUTOMATED 244 K/uL (150-450)
--- NOTE | 2018-06-08 14:20 | ONCOLOGY COMPLETION NOTE ---
EVENT DATE: June 07, 2018 DIAGNOSIS Adenocarcinoma of the prostate, status post radical prostatectomy with presentation of obstructive uropathy. See my original consultation for full details. [place] 3 + 4 = 7/10, moderate to poorly differentiated adenocarcinoma. Largest dominant nodule at 7 mm. Surgical date September 23, 2017, by Dr. Richard Wahl at [facility]. Lymph nodes negative. Pathologic T2 N0 M0. Patient referred for slowly rising PSA. TREATMENT PLAN External beam radiation therapy with IMRT with initial Lupron ADT for six to eight months to accelerate therapeutic response due to tumor grade. Pre- radiotherapy PSA 0.16 ng/mL. RADIATION DETAILS Treatment started April 20, 2018. Date completed: June 08, 2018. DOSE AND TECHNIQUE The combined radiation dose was 6300 cGy and 35 fractions at 180 cGy/fraction. Treatment was delivered with intensity modulated radiotherapy with cone beam CT targeting for field localization daily. Field reduction was performed after 4500 cGy. The pre-treatment radiographic studies were reviewed carefully for determination of the appropriate target volume. The patient received initial Lupron on April 19, 2017, 30 mg, which will need to be repeated in four months. TOLERANCE Patient tolerated the radiation therapy course quite well. Blood work was monitored weekly and sent to Dr. Lunsford in Nephrology per his request. Patient was drinking too much liquids by mid portion of the radiation program and subsequently diluted his sodium. That has now been corrected. His most creatinine last week was 1.6. The patient had a repeat metabolic panel drawn today, which should be available for this afternoon for his home health care physician and our review. Patient denies any bladder symptoms. Baseline nocturia x1. He voids three times during the day, good control. Bowels are entirely normal on the weekends. Sometimes during the weak he will have some mild urgency only. No significant skin reaction noted during the radiation program. Overall, I would say his tolerance was excellent. He is not having any significant hot flashes from the Lupron. He occasionally feels slightly warm only. DISPOSITION The patient has a followup appointment with Dr. Wahl in six weeks with laboratory studies. He will return to [facility] to see me in 12 to 13 weeks. Patient will be monitored closely the first year to establish audi and I would hope to see the PSA return to 0 by six months or close to that value. All questions were answered to the patient's satisfaction. He will follow up in December with Christine Hussein at the [facility]. Thank you for the referral and opportunity to participate in Mr. Schmitt's care. Please do not hesitate to contact me if you have any questions going forward. SOY
== END 2018-06-13 ==
LOC: RAON 10:30
PROVIDERS: ATTEND Radiology Radiation Oncology
DX: Z51.0 Encounter for antineoplastic radiation therapy (principal); C61 Malignant neoplasm of prostate; I10 Essential (primary) hypertension; K57.80 Diverticulitis of intestine, part unspecified, with perforation and abscess without bleeding; K40.20 Bilateral inguinal hernia, without obstruction or gangrene, not specified as recurrent; N13.39 Other hydronephrosis; N19 Unspecified kidney failure
CPT/HCPCS: 36415; 74176; 77280; 77290; 77300; 77301; 77334; 77336; 77338; 77385; 81001; 82040; 82247; 82310; 82374; 82435; 82565; 82947; 84075; 84132; 84153; 84155; 84295; 84450; 84460; 84520; 85025; 87088; 99202; 99212

== ENCOUNTER → 2018-08-11 | Outpatient (CLI) | payer OTHER | LOC: LAB 10:00 | PROVIDERS: ATTEND Internal Medicine Nephrology | DX: I12.9 Hypertensive chronic kidney disease with stage 1 through stage 4 chronic kidney disease, or unspecified chronic kidney disease (principal); N18.3 Chronic kidney disease, stage 3 (moderate); E87.6 Hypokalemia; E87.1 Hypo-osmolality and hyponatremia; R80.1 Persistent proteinuria, unspecified | CPT/HCPCS: 82570; 84156 ==

== ENCOUNTER → 2018-08-17 | Outpatient (CLI) | payer OTHER | LOC: LAB 14:29 | PROVIDERS: ATTEND Internal Medicine Nephrology | DX: I12.9 Hypertensive chronic kidney disease with stage 1 through stage 4 chronic kidney disease, or unspecified chronic kidney disease (principal); R80.1 Persistent proteinuria, unspecified; E87.1 Hypo-osmolality and hyponatremia; E87.6 Hypokalemia; N18.3 Chronic kidney disease, stage 3 (moderate) | CPT/HCPCS: 36415; 82040; 82310; 82374; 82435; 82565; 82947; 84100; 84132; 84295; 84520 ==

== ENCOUNTER 2018-09-03 10:26 | Outpatient (RCR) | payer OTHER ==
[2018-08-30 09:38] VITALS: BP 181/91
[2018-09-03] MEDS ORDERED: LISI-374 PO (10:37)
[2018-09-03] MEDS ORDERED: AMLO-125 PO (10:37)
[2018-09-03 10:39] VITALS: BP 169/91
[2018-09-03 11:31] VITALS: BP 169/91
[2018-09-03] MEDS ORDERED: LEUPROLIDE IM ONLY ONE (11:45)
--- NOTE | 2018-09-04 18:10 | ONCOLOGY FOLLOW UP NOTE ---
EVENT DATE: September 03, 2018 CHIEF COMPLAINT/REASON FOR VISIT History of prostate carcinoma. Patient is here for cancer surveillance. ONCOLOGY HISTORY 1. Adenocarcinoma of the prostate, [place] 3 + 4 = 7, moderately to poorly differentiated tumor. 2. Status post radical prostatectomy by Dr. Richard Wahl at [facility] on 09/23/17. 3. Pathologic T2 N0 M0 malignancy, the largest nodule at 7 mm, [place] 7/10. 4. Slowly rising PSA post surgery with recorded value of 0.16 ng/mL prior to radiation therapy. Patient was treated with IMRT to 6300 cGy in 35 fractions with combination Lupron for eight-month time frame. He received second and final injection of Lupron earlier today. His first injection was 04/19/2018. INTERVAL HISTORY Overall, patient is doing exceptionally well. AUA score is zero. Denies any bone pain. He does not have any excessive hot flashes. In fact, he states he feels warm slightly, but no sustained hot flash. The latter last about one minute. No significant changes with his voiding function following the radiotherapy program. PSA remains undetectable at less than 0.06 ng/mL on 08/30/18. MEDICATIONS 1. Lisinopril 40 mg a day. 2. Amlodipine 5 mg a day. ALLERGIES BETA VICK, DOXYCYCLINE. PAST MEDICAL HISTORY 1. Nephropathy. Patient followed by Dr. Lunsford for proteinuria and hypertension. 2. Adenocarcinoma of the prostate, treated with radical prostatectomy and external beam radiotherapy with limited ADT. Radiation course was started 04/20/2018 and completed 06/08/18. SOCIAL HISTORY Patient is retired. [place]. He is accompanied by his , Maria E. He has a son, age 45, and daughter, age 32. He is retired. Previously, he smoked less than one pack per day for seven years, having stopped 40 years ago. COMPREHENSIVE REVIEW OF SYSTEMS Entirely negative. PHYSICAL EXAMINATION GENERAL: Pleasant 73-year-old male of medium build, alert and fully cooperative to examination. VITAL SIGNS: BP is 169/91 (lower at home), pulse 87, respirations 14, O2 sat 96% on room air. Height 68 inches. Weight 169. LYMPHATICS: No lymphadenopathy. LUNGS: Clear bilaterally. HEART: Sounds regular. ABDOMEN: Soft. No gross organomegaly. RECTAL: Deferred since PSA is undetectable. EXTREMITIES: No edema or cyanosis. IMPRESSION This is a 73-year-old gentleman who was diagnosed with obstructive uropathy and a poorly differentiated prostate carcinoma back in September 2017. He underwent successful radical prostatectomy by Dr. Wahl. Postoperatively, he did well. He did have a slowly rising PSA and was referred appropriately for external beam radiotherapy with concurrent androgen deprivation therapy. He finished the radiation therapy course 06/08/18. He eceived another four-month Lupron injection, and that will be discontinued after this visit. Patient informs me that his kidney function has improved with his last creatinine down to 1.3. He had recent medication adjustments by his polarity tester. PLAN Overall, I am very pleased with his course to date. He will follow up with Dr. Wahl per schedule, and I will see him again in six months with followup PSA. All questions answered to his satisfaction over a 40-minute followup visit today. 35 minutes were spent [id number] with the patient. SOY
== END 2018-09-13 15:49 | disposition home or self-care (01) ==
LOC: RAON 10:26
PROVIDERS: ATTEND Radiology Radiation Oncology
DX: Z85.46 Personal history of malignant neoplasm of prostate (principal); Z92.3 Personal history of irradiation
CPT/HCPCS: 36415; 84153; 96372; 99212; J9217